=== PATIENT | male | born 1985 | race Caucasian/White ===

== ENCOUNTER → 2019-09-24 | Outpatient (CLI) | payer OTHER ==
[~2019-09-24] MED LIST: ALLERGY RELIEF1 EAC3 PO; MOBIC7.5 MG PO; NASAL SPRAY30 M1 NARES; ROBAXIN 750 MG750 MG PO; TYLENOL WITH CO1 TA1 PO; VIT D; [UNRECOGNIZED DRUG - REMARK]
== END ==
LOC: M.PC 09:19
DX: M47.22 Other spondylosis with radiculopathy, cervical region (principal); M47.26 Other spondylosis with radiculopathy, lumbar region; M50.10 Cervical disc disorder with radiculopathy, unspecified cervical region; M51.16 Intervertebral disc disorders with radiculopathy, lumbar region

== ENCOUNTER → 2019-11-17 | Outpatient (CLI) | payer OTHER | LOC: M.PC 04:29 | DX: M47.22 Other spondylosis with radiculopathy, cervical region (principal); M48.02 Spinal stenosis, cervical region; M50.321 Other cervical disc degeneration at C4-C5 level; M79.601 Pain in right arm; M51.16 Intervertebral disc disorders with radiculopathy, lumbar region; M48.061 Spinal stenosis, lumbar region without neurogenic claudication; M47.16 Other spondylosis with myelopathy, lumbar region; Z87.39 Personal history of other diseases of the musculoskeletal system and connective tissue; Z79.899 Other long term (current) drug therapy ==